=== PATIENT | female | born 1950 | race Caucasian/White ===

== ENCOUNTER → 2018-11-14 | Outpatient (CLI) | payer OTHER ==
--- NOTE | 2018-11-17 20:34 | SLE ---
[facility] [place] [address] POLYSOMNOGRAPHY STUDY Name: EMMY KIM Room #: REG [facility].#: [id number] Admission: 11/14/18 Attend Phys: Bob Bass MD Discharge: Date of : 52 Report #: [id number] THIS REPORT FOR: //name// CC: oBb Stephenson DATE OF SERVICE: 11/15/2018 SLEEP STUDY ATTENDING PHYSICIAN: Dr. Sterling Quispe. The patient is 67 years old who weighs 115 pounds with a BMI of 22.5. The patient's Tyronza score was 0. The patient underwent diagnostic sleep study performed at [facility]. During the night study, the patient spent 391 minutes in bed and slept for 275 minutes with a sleep efficiency of 70%. Sleep latency was 50.7 minutes with a REM latency of 278 minutes. Sleep architecture showed normal stage 1 sleep, increased stage 2 sleep, absent slow wave and reduced REM sleep. During the night study, the patient had 3 obstructive apneas, no mixed or central apneas and 2 hypopneas. The patient's apnea-hypopnea index was 1.1 per hour with an absent REM index and a supine index of 11.8 per hour. Nocturnal oximetry study revealed an average oxygen saturation of 93% with the lowest of 90%. EKG monitoring revealed mean heart rate of 76 beats per minute. No sustained arrhythmias observed. No clinically significant PLM seen. Due to low AHI, the patient did not meet the split night criteria for CPAP initiation. IMPRESSION: 1. No clinically significant sleep disordered breathing. The patient's AHI for the entire night was 1.1 per hour. 2. No clinically significant nocturnal hypoxia. 3. No clinically significant periodic limb movements. RECOMMENDATIONS: 1. The patient did not meet the criteria for CPAP initiation. [facility] [address] [place] [address] POLYSOMNOGRAPHY STUDY Name: EMMY KIM Room #: REG CLI [facility]#: [id number] Admission: 11/14/18 Attend Phys: Bob Bass MD Discharge: Date of : 52 Report #: [id number] 2. Avoid [employer] depressants. 3. Avoid supine sleep. <ELECTRONICALLY SIGNED> By: Bob Bass MD 11/17/18 2034 [id number] Bob Bass MD /nt
== END ==
LOC: SLEEPLAB 14:04
DX: G47.30 Sleep apnea, unspecified (principal)